=== PATIENT | male | born 1940 | race Caucasian/White ===

== ENCOUNTER 2023-12-03 12:58 | Outpatient (CLI) | payer MEDICARE, OTHER, SELFPAY ==
--- NOTE | 2023-12-03 13:07 | USCV_ITS ---
Cristian Peña Age: 83 Gender: M : 1940 Exam Date: 12/03/2023 13:09 Ordering Phys: Maggy Nolan MD Technologist: [place] [facility] [place]: claudication RIGHT LEFT Brachial 147.00 mmHg Brachial 142.00 mmHg Pressure (mmHg) Waveform Pressure (mmHg) Waveform Above Knee 127.00 Below Knee 115.00 [employer] 0.83 DPA 0.81 Ankle/Brachial Index 0.56 Pre-Exercise Toe Pressure 104.00 Pre-Exercise Toe/Brachial Index 0.71 FINDINGS THAI of 0.56 on the left side TBI of 0.7 on the left side The PVR waveforms were found to be of low amplitude and delayed peaking at the ankles and in the toes CONCLUSIONS 1. Abnormal resting THAI,/PVR suggestive of moderate to severe peripheral artery disease, on the left side 2. Near normal resting TBI with abnormal PVR waveforms also may suggest a significant arterial obstruction on the left side Dr Daxa Begum MD [facility] (Electronically Signed) Final Date: 04 December 2023 10:52 S
== END 2023-12-03 12:59 | disposition home or self-care (01) ==
LOC: RAD 13:02
PROVIDERS: Family Provider Family Medicine; PCP Family Medicine; Visit Provider Family Medicine
DX: I73.9 Peripheral vascular disease, unspecified (principal); M79.662 Pain in left lower leg
CPT/HCPCS: 93922

== ENCOUNTER → 2024-02-20 13:17 | Outpatient (BNVA) | payer MEDICARE, OTHER, SELFPAY | PROVIDERS: Family Provider Family Medicine; PCP Family Medicine; Referring Provider Family Medicine; Visit Provider Internal Medicine | DX: I49.8 Other specified cardiac arrhythmias (principal); I44.0 Atrioventricular block, first degree; R07.9 Chest pain, unspecified | CPT/HCPCS: 93005; 99204 ==

== ENCOUNTER → 2024-05-21 12:47 | Outpatient (BNVA) | payer MEDICARE, OTHER, SELFPAY | PROVIDERS: Family Provider Family Medicine; PCP Family Medicine; Visit Provider Internal Medicine | DX: I73.9 Peripheral vascular disease, unspecified (principal); M79.602 Pain in left arm | CPT/HCPCS: 99214 ==

== ENCOUNTER → 2024-12-11 10:39 | Outpatient (BNVA) | payer MEDICARE, OTHER, SELFPAY | PROVIDERS: Family Provider Family Medicine; PCP Nurse Practitioner Family; Visit Provider Nurse Practitioner Family | DX: I73.9 Peripheral vascular disease, unspecified (principal); Z79.82 Long term (current) use of aspirin; Z87.891 Personal history of nicotine dependence | CPT/HCPCS: 99214 ==

== ENCOUNTER 2024-12-21 12:48 | Outpatient (CLI) | payer MEDICARE, OTHER, SELFPAY ==
--- NOTE | 2024-12-21 13:15 | USR_ITS ---
PROCEDURE INFORMATION: Exam: US Duplex Bilateral Lower Extremity Arteries Exam date and time: 12/21/2024 12:55 PM Age: 84 years old Clinical indication: Other: Claudication TECHNIQUE: Imaging protocol: Real-time ultrasound scan of the arteries of the bilateral lower extremities with 2-D phan scale, color Doppler flow and spectral waveform analysis. Images documented and saved. COMPARISON: No relevant prior studies available. FINDINGS: Right common femoral artery: No occlusion or significant stenosis. Biphasic waveform. Right superficial femoral artery: No occlusion or significant stenosis. Biphasic waveform in the SFA. Right popliteal artery: No occlusion or significant stenosis. Biphasic waveform. Right calf/foot arteries: No occlusion or significant stenosis in the visualized arteries. Biphasic waveforms. Dorsalis pedis artery is patent. Left common femoral artery: No occlusion or significant stenosis. Normal waveform. Left superficial femoral artery: No occlusion or significant stenosis. Biphasic waveform in the proximal SFA. Monophasic from mid SFA distally. Left popliteal artery: No occlusion or significant stenosis. Monophasic waveform. Left calf/foot arteries: No occlusion or significant stenosis in the visualized arteries. Monophasic waveforms. Dorsalis pedis artery is patent. US/CV arterial duplex [facility] [id number] IMPRESSION: Left THAI 0.66 Right THAI: N/a
== END 2024-12-21 12:49 | disposition home or self-care (01) ==
LOC: RAD 12:49
PROVIDERS: PCP Nurse Practitioner Family; Visit Provider Nurse Practitioner Family
DX: I73.9 Peripheral vascular disease, unspecified (principal)
CPT/HCPCS: 93925

== ENCOUNTER 2025-01-11 10:43 | Outpatient (CLI) | payer MEDICARE, OTHER, SELFPAY ==
--- NOTE | 2025-01-11 11:15 | USCV_ITS ---
Cristian Peña Age: 84 Gender: M : 1940 Exam Date: 01/11/2025 11:05 Ordering Phys: Patti Capellan NP Technologist: MANDO Exam Location: [facility] [place] Indication: SoB BP: 154 / 71 HR: 52 Rhythm: Sinus Technical Quality: Adequate MEASUREMENTS (Male / Female) Normal Values 2D ECHO LV Diastolic Diameter PLAX 4.7 cm 4.2 - 5.9 / 3.9 - 5.3 cm IVS Diastolic Thickness 1.4 cm 0.6 - 1.0 / 0.6 - 0.9 cm IVS Systolic Thickness 1.8 cm LVPW Diastolic Thickness 1.5 cm 0.6 - 1.0 / 0.6 - 0.9 cm LVPW Systolic Thickness 1.9 cm LVOT Diameter 2.1 cm LV Ejection Fraction 2D Teich 58.1 % LV Ejection Fraction MOD 4C 60.8 % LV Ejection Fraction MOD 2C 70.4 % LV Ejection Fraction 2C AL 72.3 % LA Diameter 2.8 cm RA Systolic Volume 4C AL 35.3 ml RA Systolic Volume 4C MOD 33.7 ml LA Sys Volume AL 41.1 cm cubed LA Sys Volume Index AL 21.6 cm cubed/m squared Aorta at Sinotubular Diameter 3.1 cm IVC Diameter 1.9 cm M-MODE LA Ao Ratio MM 1.3 AV Cusp Separation MM 1.1 cm DOPPLER AV Peak Velocity 148.0 cm/s LVOT Peak Velocity 107.0 cm/s AV Area Cont Eq vti 2.5 cm squared AV Area Cont Eq pk 2.6 cm squared MV Peak Velocity 79.0 cm/s MV Area PHT 3.2 cm squared Mitral E to A Ratio 0.8 TV Peak Velocity 147.0 cm/s TR Peak Velocity 209.0 cm/s TR Peak Gradient 17.5 mmHg TV Peak E Velocity 69.0 cm/s PV Peak Velocity 88.0 cm/s FINDINGS Left Ventricle Normal left ventricular size and systolic function, EF 70%. Mild left ventricular hypertrophy. No regional wall motion abnormalities. Grade I/IV diastolic dysfunction (abnormal relaxation filling pattern), normal to mildly elevated filling pressures. Right Ventricle The right ventricle is normal in size and function. Right Atrium The right atrium is normal in size. Left Atrium The left atrium is normal in size. Mitral Valve Thickened mitral valve. Aortic Valve Moderate aortic valve regurgitation. Moderate aortic valve calcification. Tricuspid Valve No gross abnormalities noted Pulmonic Valve Trace pulmonary valve regurgitation. Pericardium Normal pericardium without effusion. Aorta Aortic root measuring 4.0 cm in diameter at the level of the sinuses IVC Normal inferior vena cava. CONCLUSIONS Normal left ventricular size and systolic function, EF 70%. Mild left ventricular hypertrophy. No regional wall motion abnormalities. Grade I/IV diastolic dysfunction (abnormal relaxation filling pattern), normal to mildly elevated filling pressures. Thickened mitral valve. Moderate aortic valve regurgitation. Moderate aortic valve calcification. Trace pulmonary valve regurgitation. There is no pericardial effusion. There are no intracardiac masses. No similar previous studies are available for comparison Dr Daxa Begum MD [facility] (Electronically Signed) Final Date: 12 January 2025 14:50 S
== END 2025-01-11 10:44 | disposition home or self-care (01) ==
LOC: RAD 10:44
PROVIDERS: PCP Nurse Practitioner Family; Visit Provider Nurse Practitioner Family
DX: I35.2 Nonrheumatic aortic (valve) stenosis with insufficiency (principal)
CPT/HCPCS: 93306

== ENCOUNTER 2025-01-29 10:55 | Outpatient (CLI) | payer MEDICARE, OTHER, SELFPAY ==
[2025-01-29] MEDS: iohexol 350 mg/mL 500 mL Btl (per mL) IV (11:00)
--- NOTE | 2025-01-29 11:00 | CT_ITS ---
WS: [id number] CTA THORACIC TECHNIQUE: Contrast enhanced CTA of the thoracic aorta with coronal and sagittal reformatted images and maximum intensity projection (MIP) images. CLINICAL INFORMATION: ascending aortic aneurysm COMPARISON: None. DLP: 657.[address] scans at [facility] use at least one of these dose optimization techniques: automated exposure control; mA and/or kV adjustment per patient size (includes targeted exams where dose is matched to clinical indication); or iterative reconstruction. FINDINGS: Ascending thoracic aorta measures 4.0 cm. Normal caliber descending thoracic aorta. Moderate atheromatous disease. Coronary calcification. Proximal main pulmonary arteries are normal. No mediastinal or hilar lymphadenopathy. Calcified mediastinal lymph nodes. Small to moderate esophageal hiatal hernia. Adrenal glands are normal. Normal caliber upper abdominal aorta. Celiac and SMA are patent. Splenic artery calcification. Mild chronic emphysematous changes. No acute pulmonary infiltrates. No focal pneumonia or pleural fluid. 4.5 mm RIGHT upper lobe nodule in the fissure best seen on the sagittal and coronal imaging. Small nodules along the ascending thoracic aorta RIGHT upper lobe. CT/CT angio chest [id number] IMPRESSION: 1. Ascending thoracic aortic aneurysm measures 4.0 cm. Normal caliber descendi ng thoracic aorta. 2. Moderate aortic atheromatous disease. 3. Coronary calcification. 4. Proximal main pulmonary arteries are normal. 5. Small to moderate esophageal hiatal hernia. 6. 4.5 mm RIGHT upper lobe nodule in the fissure best seen on the sagittal and coronal imaging. Recommend 12-month follow-up.
[2025-01-29 11:30] LABS: Blood Urea Nitrogen 17 mg/dL (8-23)
== END 2025-01-29 10:56 | disposition home or self-care (01) ==
LOC: RAD 10:56
PROVIDERS: PCP Nurse Practitioner Family; Visit Provider Nurse Practitioner Family
DX: I71.21 Aneurysm of the ascending aorta, without rupture (principal); I70.0 Atherosclerosis of aorta; I25.10 Atherosclerotic heart disease of native coronary artery without angina pectoris; K44.9 Diaphragmatic hernia without obstruction or gangrene; I89.8 Other specified noninfective disorders of lymphatic vessels and lymph nodes; I70.8 Atherosclerosis of other arteries; J43.8 Other emphysema; R91.8 Other nonspecific abnormal finding of lung field
CPT/HCPCS: 71275; 82565; 84520

== ENCOUNTER 2025-03-03 08:55 | Outpatient (CLI) | payer MEDICARE, OTHER, SELFPAY ==
--- NOTE | 2025-03-03 09:30 | USCV_ITS ---
Casey Cristian Age: 84 Gender: M : 1940 Exam Date: 03/03/2025 09:29 Ordering Phys: Daxa Begum MD ([email or web address]) Technologist: RANGEL Exam Location: [facility] [place] Indication: AAA screening HISTORY: Diameter (cm) AP x Transverse x Length Velocity (cm/s) Waveform Prox Aorta: 1.81 x 1.89 x 76.60 Triphasic Mid Aorta: 2.34 x 1.89 x 1.90 76.40 Triphasic Distal Aorta: 1.76 x 1.42 x 60.50 Triphasic Right Iliac Prox: 1.12 x 1.37 x 96.60 Triphasic Left Iliac Prox: 1.07 x 1.25 x 90.60 Triphasic Stent Prox Landing x x Aneurysmal Sac Max x x Lt Lat Sac Dim Rt Lat Sac Dim Stent Dist Landing x x Right Iliac Stent x x Left Iliac Stent x x Right Renal Art Left Renal Art FINDINGS: Comparison: none available. Ectatic abdominal aorta with evidence of atherosclerotic plaque noted. Focal dilatation in mid aorta but less than 3 cm diameter. Normal Doppler flow velocites noted throught the aorta and common iliac arteries. CONCLUSIONS Minimal focal dilatation mid aorta, ectactic but less than [address] Zoraida Dickinson DO (Electronically Signed) Final Date: 03 March 2025 10:24 S
== END 2025-03-03 08:56 | disposition home or self-care (01) ==
LOC: RAD 08:55
PROVIDERS: PCP Nurse Practitioner Family; Visit Provider Internal Medicine Cardiovascular Disease
DX: I73.9 Peripheral vascular disease, unspecified (principal)
CPT/HCPCS: 76706